=== PATIENT | female | born 1995 | race American Indian/Alaskan Native ===

== ENCOUNTER 2016-06-27 05:16 | Emergency (ER) | payer OTHER, SELFPAY ==
[2016-06-27 05:23] VITALS: RESP 18; TEMP 98.1; O2SAT 100
[2016-06-27] MEDS ORDERED: Alum-Mag Hydrox-Simethicone Susp (30 mL) PO STA (05:29)
--- NOTE | 2016-06-27 05:37 | ED PDOC ---
Arrival/HPI - General Chief Complaint: Abdominal Pain Time Seen by Provider: 06/27/16 05:18 Historian: Patient - History of Present Illness Narrative History of Present Illness (Text): 06/27/16 05:31 Mona Lozada is a 21 year old female, with no significant past medical history, presents to the emergency department complaining of intermittent epigastric abdominal pain for past 2 days. Describes quality as a sharp pain which does not radiate elsewhere. Currently has no pain. Denies any nausea, vomiting, diarrhea, or urinary symptoms. Patient's is unsure when her last bowel movement was, but states it was normal. Denies any other complaints. PMD: No PMD Time/Duration: < week (2 days ) Symptom Onset: Gradual Symptom Course: Intermittent Severity Level: Mild Activities at Onset: Light Context: Home Past Medical History - Provider Review Nursing Documentation Reviewed: Yes - Past History Past History: No Previous - Infectious Disease Hx of Infectious Diseases: None - Tetanus Immunization Tetanus Immunization: Unknown - Past Medical History Past Medical History: No Previous - Cardiac Hx Cardiac Disorders: No - Pulmonary Hx Respiratory Disorders: No - Neurological Hx Neurological Disorder: No - HEENT Hx HEENT Disorder: No - Renal Hx Renal Disorder: No - Endocrine/Metabolic Hx Endocrine Disorders: No - Hematological/Oncological Hx Blood Disorders: No - Integumentary Hx Dermatological Disorder: Yes Other/Comment: Lump on R breast - Musculoskeletal/Rheumatological Hx Musculoskeletal Disorders: No - Gastrointestinal Hx Gastrointestinal Disorders: No - Genitourinary/Gynecological Hx Genitourinary Disorders: No - Psychiatric Hx Psychophysiologic Disorder: No Hx Anxiety: No Hx Bipolar Disorder: No Hx Depression: No Hx Emotional Abuse: No Hx Hallucinations: No Hx Panic Disorder: No Hx Post Traumatic Stress Disorder: No Hx Psychosis: No Hx Physical Abuse: No Hx Schizophrenia: No Hx Sexual Abuse: No Hx Substance Use: No - Past Surgical History Past Surgical History: No Previous - Anesthesia Hx Anesthesia: No Hx Anesthesia Reactions: No Hx Malignant Hyperthermia: No - Suicidal Assessment Feels Threatened In Home Enviroment: No Family/Social History - Physician Review Nursing Documentation Reviewed: Yes Family/Social History: No Known Family HX Smoking Status: Never Smoked Hx Alcohol Use: No Hx Substance Use: No Hx Substance Use Treatment: No Allergies/Home Meds Allergies/Adverse Reactions: Allergies No Known Allergies Allergy (Verified 06/07/16 10:52) Review of Systems - Physician Review All systems were reviewed & negative as marked: Yes - Review of Systems Constitutional: Normal. absent: Fatigue, Fevers Respiratory: Normal. absent: SOB, Cough Gastrointestinal: Abdominal Pain. absent: Diarrhea, Nausea, Vomiting Neurological: Normal. absent: Headache, Dizziness Psychiatric: Normal Physical Exam Vital Signs Reviewed: Yes Vital Signs Temp Pulse Resp BP Pulse Ox 06/27/16 06:25 71 18 112/69 100 06/27/16 05:22 98.1 F 89 18 113/68 100 Temperature: Afebrile Blood Pressure: Normal Pulse: Regular Respiratory Rate: Normal Appearance: Positive for: Well-Appearing, Non-Toxic, Comfortable Pain Distress: None Mental Status: Positive for: Alert and Oriented X 3 - Systems Exam Head: Present: Atraumatic, Normocephalic Pupils: Present: PERRL Extroacular Muscles: Present: EOMI Conjunctiva: Present: Normal Respiratory/Chest: Present: Clear to Auscultation, Good Air Exchange. No: Respiratory Distress, Accessory Muscle Use Cardiovascular: Present: Regular Rate and Rhythm, Normal S1, S2. No: Murmurs Abdomen: Present: Normal Bowel Sounds. No: Tenderness, Distention, Peritoneal Signs, Rebound, Guarding Upper Extremity: Present: Normal Inspection Lower Extremity: Present: Normal Inspection Neurological: Present: GCS=15, CN II-XII Intact, Speech Normal Skin: Present: Warm, Dry, Normal Color. No: Rashes Psychiatric: Present: Alert, Oriented x 3, Normal Insight, Normal Concentration Medical Decision Making ED Course and Treatment: 06/27/16 05:38 Impression: A 21 year old female who presents to the ed c/o intermittent abdominal pain for 2 days. Plan: -- Maalox -- Pepcid Progress Notes: 06/27/16 05:39 - Medication Orders Current Medication Orders: Discontinued Medications Al Hydrox/Mg Hydrox/Simethicone (Maalox Plus 30 Ml) 30 ml PO STAT STA Stop: 06/27/16 05:30 Last Admin: 06/27/16 05:46 Dose: 30 ML Famotidine (Pepcid) 20 mg PO STAT STA Stop: 06/27/16 05:29 Last Admin: 06/27/16 05:46 Dose: 20 MG - Scribe Statement The provider has reviewed the documentation as recorded by the Andreea Burns Provider Attestation: All medical record entries made by the Andreea were at my direction and personally dictated by me. I have reviewed the chart and agree that the record accurately reflects my personal performance of the history, physical exam, medical decision making, and the department course for this patient. I have also personally directed, reviewed, and agree with the discharge instructions and disposition. Disposition/Present on Arrival - Present on Arrival Any Indicators Present on Arrival: No History of DVT/PE: No History of Uncontrolled Diabetes: No Urinary Catheter: No History of Decub. Ulcer: No History Surgical Site Infection Following: None - Disposition Have Diagnosis and Disposition been Completed?: Yes Diagnosis: Abdominal pain Disposition: HOME/ ROUTINE Disposition Time: 06:30 Patient Plan: Discharge Patient Problems: Current Active Problems Problem Status Diagnosed Abdominal pain Acute Condition: IMPROVED Discharge Instructions (ExitCare): Abdominal Pain (ED) Additional Instructions: Ms Mullen, thank you for letting us take care of you today. Your provider was Dr. More. You were treated for Abdominal Pain. The emergency medical care you received today was directed at your acute symptoms. If you were prescribed any medication, please fill it and take as directed. It may take several days for your symptoms to resolve. Return to the Emergency Department if your symptoms worsen, do not improve, or if you have any other problems. Please contact your doctor or call one of the physicians/clinics you have been referred to that are listed on the Patient Visit Information form that is included in your discharge packet. Bring any paperwork you were given at discharge with you along with any medications you are taking to your follow up visit. Our treatment cannot replace ongoing medical care by a primary care provider (PCP) outside of the emergency department. Thank you for allowing the [facility] team to be part of your care today. If you had an X-Ray or CT scan: A Radiologist will review the ED reading if any change in treatment is needed we will contact you. If you had a blood, urine, or wound culture: It will take several days for the results, if any change in treatment is needed we will contact you. If you had an STI test: It will take 48 hours for the results. Please call after 1 week if you have not heard back. Prescriptions: Aluminum Hydroxide/Magnesium H [Maalox 30 ml] 30 ml PO Q8 #1 bottle Ranitidine HCl [Zantac] 150 mg PO BID PRN #30 tablet PRN Reason: Pain, Mild (1-3) Referrals: [facility] at [facility] [Outside] - Follow up with primary Forms: WORK NOTE
[2016-06-27 06:26] VITALS: BP 112/69; PULSE 71
== END 2016-06-27 06:33 | disposition home or self-care (01) ==
LOC: ED 05:16
DX: R10.13 Epigastric pain (principal)

== ENCOUNTER 2016-08-09 21:18 | Emergency (ER) | payer SELFPAY ==
[2016-08-09 21:25] VITALS: RESP 16; TEMP 98.8; O2SAT 100
[2016-08-09] MEDS ORDERED: DiphenhydrAMINE 12.5 mg/5 ml LIQ UD (5 ml) PO STA (22:09)
--- NOTE | 2016-08-09 22:14 | ED PDOC ---
Arrival/HPI - General Chief Complaint: Female Genitourinary Time Seen by Provider: 08/09/16 21:53 Historian: Patient - History of Present Illness Narrative History of Present Illness (Text): 08/09/16 22:09 21yo female present in ER with complaint of vaginal swelling and pain minutes s/ p using new soap tonight. States the swelling have improved significantly since she came to the ED. She denies urinary symptoms, vaginal discharge, abdominal pain, SOB, chest pain, rash, any other complaint. Past Medical History - Provider Review Nursing Documentation Reviewed: Yes - Past History Past History: No Previous - Infectious Disease Hx of Infectious Diseases: None - Tetanus Immunization Tetanus Immunization: Unknown - Reproductive Menopause: No - Past Medical History Past Medical History: No Previous - Cardiac Hx Cardiac Disorders: No - Pulmonary Hx Respiratory Disorders: No - Neurological Hx Neurological Disorder: No - HEENT Hx HEENT Disorder: No - Renal Hx Renal Disorder: No - Endocrine/Metabolic Hx Endocrine Disorders: No - Hematological/Oncological Hx Blood Disorders: No - Integumentary Hx Dermatological Disorder: Yes Other/Comment: Lump on R breast - Musculoskeletal/Rheumatological Hx Musculoskeletal Disorders: No - Gastrointestinal Hx Gastrointestinal Disorders: No - Genitourinary/Gynecological Hx Genitourinary Disorders: No - Psychiatric Hx Psychophysiologic Disorder: No Hx Anxiety: No Hx Bipolar Disorder: No Hx Depression: No Hx Emotional Abuse: No Hx Hallucinations: No Hx Panic Disorder: No Hx Post Traumatic Stress Disorder: No Hx Psychosis: No Hx Physical Abuse: No Hx Schizophrenia: No Hx Sexual Abuse: No Hx Substance Use: No - Past Surgical History Past Surgical History: No Previous - Anesthesia Hx Anesthesia: No Hx Anesthesia Reactions: No Hx Malignant Hyperthermia: No - Suicidal Assessment Feels Threatened In Home Enviroment: No Family/Social History - Physician Review Nursing Documentation Reviewed: Yes Family/Social History: Unknown Family HX Smoking Status: Never Smoked Hx Alcohol Use: No Hx Substance Use: No Hx Substance Use Treatment: No Allergies/Home Meds Allergies/Adverse Reactions: Allergies No Known Allergies Allergy (Verified 06/07/16 10:52) Review of Systems - Physician Review All systems were reviewed & negative as marked: Yes - Review of Systems Constitutional: Normal Eyes: Normal ENT: Normal Respiratory: Normal Cardiovascular: Normal Gastrointestinal: Normal Genitourinary Female: Other (Vaginal pain) Musculoskeletal: Normal Skin: Normal Neurological: Normal Endocrine: Normal Hemo/Lymphatic: Normal Psychiatric: Normal Physical Exam Vital Signs Reviewed: Yes Vital Signs Temp Pulse Resp BP Pulse Ox 08/09/16 21:24 98.8 F 84 16 133/83 100 Temperature: Afebrile Blood Pressure: Normal Pulse: Regular Respiratory Rate: Normal Appearance: Positive for: Well-Appearing, Non-Toxic, Comfortable Pain Distress: None Mental Status: Positive for: Alert and Oriented X 3 - Systems Exam Head: Present: Atraumatic, Normocephalic Pupils: Present: PERRL Extroacular Muscles: Present: EOMI Conjunctiva: Present: Normal Mouth: Present: Moist Mucous Membranes Pharnyx: No: Strider Neck: Present: Normal Range of Motion Respiratory/Chest: Present: Clear to Auscultation, Good Air Exchange. No: Respiratory Distress, Accessory Muscle Use Cardiovascular: Present: Regular Rate and Rhythm, Normal S1, S2. No: Murmurs Abdomen: Present: Normal Bowel Sounds. No: Tenderness, Distention, Peritoneal Signs Genitourinary/Pelvic Exam: Present: Normal External Genitalia Back: Present: Normal Inspection Upper Extremity: Present: Normal Inspection. No: Cyanosis, Edema Lower Extremity: Present: Normal Inspection. No: Edema Neurological: Present: GCS=15, CN II-XII Intact, Speech Normal Skin: Present: Warm, Dry, Normal Color. No: Rashes Psychiatric: Present: Alert, Oriented x 3, Normal Insight, Normal Concentration Medical Decision Making - Medication Orders Current Medication Orders: Diphenhydramine HCl (Benadryl) 25 mg PO STAT STA Stop: 08/09/16 22:10 Prednisone (Prednisone Tab) 40 mg PO STAT STA Stop: 08/09/16 22:10 Disposition/Present on Arrival - Present on Arrival Any Indicators Present on Arrival: No History of DVT/PE: No History of Uncontrolled Diabetes: No Urinary Catheter: No History of Decub. Ulcer: No History Surgical Site Infection Following: None - Disposition Have Diagnosis and Disposition been Completed?: Yes Diagnosis: Allergic reaction Disposition: HOME/ ROUTINE Disposition Time: 22:15 Patient Plan: Discharge Condition: STABLE Discharge Instructions (ExitCare): Urticaria (ED) Additional Instructions: Follow up with your doctor Return to ED for any new or worsening symptoms Prescriptions: DiphenhydrAMINE [Benadryl] 25 mg PO Q4H #20 cap predniSONE [Prednisone] 20 mg PO DAILY #3 tab Referrals: PCP,NO [Primary Care Provider] - Follow up with primary
[2016-08-09 23:15] VITALS: BP 123/69; PULSE 76
== END 2016-08-09 23:15 | disposition home or self-care (01) ==
LOC: ED 21:18
DX: T78.40XA Allergy, unspecified, initial encounter (principal); X58.XXXA Exposure to other specified factors, initial encounter

== ENCOUNTER 2018-03-10 09:05 | Emergency (ER) | payer MEDICAID, OTHER, SELFPAY ==
[2018-03-10 09:13] VITALS: BMI 22.9
[2018-03-10 09:15] VITALS: TEMP 97.7; O2SAT 98
--- NOTE | 2018-03-10 10:21 | ED PDOC ---
Arrival/HPI - General Chief Complaint: Female Genitourinary Time Seen by Provider: 03/10/18 09:38 Historian: Patient - History of Present Illness Narrative History of Present Illness (Text): 03/10/18 10:17 23yr old female presents today with vaginal bleeding x 2 days. pt c/o lower abdominal cramping. no fever/chills. pt states LMP was 02/20/18. pt states periods are always regular. pt denies . pt denies cp or sob. no n/v/d/c. no urinary symptoms. pt c/o slight right sided back pain. pt states she usually gets back pain with her periods. pt states she started using metrogel for BV on 2 days ago. Past Medical History - Provider Review Nursing Documentation Reviewed: Yes - Travel History Have you recently traveled outside [place] w/in the past 3 mons?: No - Past History Past History: No Previous - Infectious Disease Hx of Infectious Diseases: None - Tetanus Immunization Tetanus Immunization: Unknown - Past Medical History Past Medical History: No Previous - Cardiac Hx Cardiac Disorders: No - Pulmonary Hx Respiratory Disorders: No - Neurological Hx Neurological Disorder: No - HEENT Hx HEENT Disorder: No - Renal Hx Renal Disorder: No - Endocrine/Metabolic Hx Endocrine Disorders: No - Hematological/Oncological Hx Blood Disorders: No - Integumentary Hx Dermatological Disorder: Yes Other/Comment: Lump on R breast - Musculoskeletal/Rheumatological Hx Musculoskeletal Disorders: No Hx Falls: No - Gastrointestinal Hx Gastrointestinal Disorders: No - Genitourinary/Gynecological Hx Genitourinary Disorders: No - Psychiatric Hx Anxiety: No Hx Bipolar Disorder: No Hx Depression: No Hx Post Traumatic Stress Disorder: No Hx Schizophrenia: No Hx Substance Use: No - Past Surgical History Past Surgical History: No Previous - Anesthesia Hx Anesthesia: No Hx Anesthesia Reactions: No Hx Malignant Hyperthermia: No - Suicidal Assessment Feels Threatened In Home Enviroment: No Family/Social History - Physician Review Nursing Documentation Reviewed: Yes Family/Social History: Unknown Family HX Smoking Status: Never Smoked Hx Alcohol Use: No Hx Substance Use: No Hx Substance Use Treatment: No Allergies/Home Meds Allergies/Adverse Reactions: Allergies No Known Allergies Allergy (Verified 10/03/17 10:47) Home Medications: Home Meds Medication Instructions Recorded Confirmed No Known Home Med 01/07/18 03/10/18 Review of Systems - Review of Systems Constitutional: absent: Fatigue, Fevers Respiratory: absent: SOB, Cough Cardiovascular: absent: Chest Pain, Palpitations Gastrointestinal: Abdominal Pain. absent: Constipation, Diarrhea, Nausea, Vomiting Genitourinary Female: Vaginal Bleeding. absent: Dysuria, Frequency Musculoskeletal: Back Pain. absent: Arthralgias, Neck Pain Skin: absent: Rash, Pruritis Neurological: absent: Headache, Dizziness Psychiatric: absent: Anxiety, Depression Physical Exam Vital Signs Reviewed: Yes Vital Signs Temp Pulse Resp BP Pulse Ox 03/10/18 09:14 97.7 F 83 16 118/81 98 Temperature: Afebrile Blood Pressure: Normal Pulse: Regular Respiratory Rate: Normal Appearance: Positive for: Well-Appearing, Non-Toxic, Comfortable Pain Distress: None Mental Status: Positive for: Alert and Oriented X 3 - Systems Exam Head: Present: Atraumatic Mouth: Present: Moist Mucous Membranes Neck: Present: Normal Range of Motion Respiratory/Chest: Present: Clear to Auscultation, Good Air Exchange. No: Respiratory Distress, Accessory Muscle Use Cardiovascular: Present: Regular Rate and Rhythm, Normal S1, S2. No: Murmurs Abdomen: Present: Tenderness (minimal suprapubic tenderness). No: Distention, Peritoneal Signs, Rebound, Guarding Genitourinary/Pelvic Exam: Present: Normal External Genitalia, Vaginal Bleeding (minimal bleeding noted), Cervical os Closed, Other (chaparoned by Estefany JAMES student). No: Vaginal Lesions, Adenexal Tenderness, Adenexal Mass, Cervical Motion Tendernes, Odor Back: Present: Normal Inspection. No: CVA Tenderness, Midline Tenderness, Paraspinal Tenderness Upper Extremity: Present: Normal Inspection Lower Extremity: Present: Normal Inspection Neurological: Present: GCS=15, Speech Normal Skin: Present: Warm, Dry, Normal Color. No: Rashes Psychiatric: Present: Alert, Oriented x 3 Medical Decision Making ED Course and Treatment: 03/10/18 10:22 Patient is nontoxic well appearing in no distress. Vital signs are stable. CBC: wnl CMP: wnl Beta hCG: wnl Urinalysis: + blood Ultrasound (transvaginal): normal examination as read by radiologist Discussed all the results the patient. advised f/u with the emergency services professional within the next 2 days. advised immediate return if symptoms worsen,persist or if new symptoms develop. Impression: Vaginal bleeding Tylenol every 4 hours as needed for pain Increase fluids Followup with the emergency services professional within the next 2 days Return immediately if symptoms worsen persist or if new symptoms develop: High fevers, heavy bleeding, severe abdominal pain, vomiting, diarrhea, dizziness or weakness or any other concerning symptoms develop. Disposition/Present on Arrival - Present on Arrival Any Indicators Present on Arrival: No History of DVT/PE: No History of Uncontrolled Diabetes: No Urinary Catheter: No History of Decub. Ulcer: No History Surgical Site Infection Following: None - Disposition Have Diagnosis and Disposition been Completed?: Yes Diagnosis: Vaginal bleeding Disposition: HOME/ ROUTINE Disposition Time: 11:15 Patient Plan: Discharge Condition: GOOD Additional Instructions: Tylenol every 4 hours as needed for pain Increase fluids Followup with the emergency services professional within the next 2 days Return immediately if symptoms worsen persist or if new symptoms develop: High fevers, heavy bleeding, severe abdominal pain, vomiting, diarrhea, dizziness or weakness or any other concerning symptoms develop. Referrals: Mel Cody MD [Medical Doctor] - Follow up with primary Kay Curiel MD [Medical Doctor] - Follow up with primary [facility] [Outside] - Follow up with primary [facility] [Outside] - Follow up with primary Forms: [facility] (Korean), WORK NOTE
[2018-03-10 10:51] LABS: BASO # 0.03 K/mm3 (0.0-2.0); BASO % 0.7 % (0.0-3.0); EOS % 0.9 % (1.5-5.0); GRAN # 2.63 (1.4-6.5); HEMOGLOBIN 12.6 g/dL (12.0-16.0); LYMPH # 1.7 (1.2-3.4); LYMPH % 35.8 % (22.0-35.0); MEAN CELL VOLUME 78.3 fl (80.0-105.0); MEAN CORPUSCULAR HEMOGLOBIN 25.5 pg (25.0-35.0); MEAN CORPUSCULAR HGB CONC 32.6 g/dl (31.0-37.0); MEAN PLATELET VOLUME 9.4 fl (7.0-11.0); MONO # 0.3 (0.1-0.6); MONO % 5.6 % (1.0-6.0); RBC 4.94 10^6/uL (3.5-6.1); RED CELL DISTRIBUTION WIDTH 14.3 % (11.5-14.5); WHITE BLOOD COUNT 4.6 10^3/uL (4.5-11.0)
[2018-03-10 11:00] LABS: ALB/GLOB RATIO 1.4 (1.1-1.8); ALBUMIN 4.6 g/dL (3.0-4.8); ALT/SGPT 41 U/L (7-56); AST/SGOT 26 U/L (14-36); BLOOD UREA NITROGEN 11 mg/dL (7-21); GFR NON-AFRICAN AMERICAN > 60
[2018-03-10 11:05] LABS: PH,URINE 5.5 (4.7-8.0); URINE APPEARANCE CLOUDY (CLEAR); URINE BILIRUBIN SMALL (NEGATIVE); URINE BLOOD LARGE (NEGATIVE); URINE COLOR RED (YELLOW); URINE GLUCOSE (UA) 100 mg/dL (NEGATIVE); URINE LEUKOCYTE ESTERASE TRACE Leu/uL (NEGATIVE); URINE PROTEIN >=300 mg/dL (<30 mg/dL); URINE RBC TNTC /hpf (0-2)
[2018-03-10 11:06] LABS: URINE BACTERIA FEW (NEG)
[2018-03-10 11:09] VITALS: BP 116/78; PULSE 79; RESP 18
--- NOTE | 2018-03-10 11:18 | US ---
Date of service: 03/10/2018 PROCEDURE: HISTORY: vaginal bleeding COMPARISON: TECHNIQUE: FINDINGS: The uterus measures 7.5 x 3.5 x 4.6 centimeters. The endometrium measures 4 millimeters. There is no free fluid the pelvis. The ovaries have a normal sonographic appearance. IMPRESSION: Normal exam.
== END 2018-03-10 11:40 | disposition home or self-care (01) ==
LOC: ED 09:05
DX: N93.9 Abnormal uterine and vaginal bleeding, unspecified (principal)

== ENCOUNTER 2018-05-23 18:31 | Emergency (ER) | payer MEDICAID, OTHER ==
[2018-05-23 18:31] VITALS: BMI 22.9
--- NOTE | 2018-05-23 18:55 | ED PDOC ---
Arrival/HPI - General Chief Complaint: Chest Pain Time Seen by Provider: 05/23/18 18:38 - History of Present Illness Narrative History of Present Illness (Text): 23 yr old female w/ hx of mastitis p/w L sided chest pain. Pt denies or scratching her L chest. She denies any redness to L chest. She notes 1 week of L sided chest pain, worse when she lays on her lateral L side reproducible to palpation. She denies any lumps, warmth or tenderness in her breast or any nipple discharge. No fever, chills or night sweats. She notes this pain started after she slept wrong on her L side. She denies any shortness of breath or pleuritic chest pain. No recent weight loss. No orthopnea or PND. No leg swelling. No hx of dvt. no trauma or fall. No GI or complaints. She denies any rashes. She denies taking any medications for the pain. No other complaints. Past Medical History - Past History Past History: No Previous - Infectious Disease Hx of Infectious Diseases: None - Tetanus Immunization Tetanus Immunization: Unknown - Reproductive Currently : Unknown - Past Medical History Past Medical History: No Previous - Cardiac Hx Cardiac Disorders: No - Pulmonary Hx Respiratory Disorders: No - Neurological Hx Neurological Disorder: No - HEENT Hx HEENT Disorder: No - Renal Hx Renal Disorder: No - Endocrine/Metabolic Hx Endocrine Disorders: No - Hematological/Oncological Hx Blood Disorders: No - Integumentary Hx Dermatological Disorder: Yes Other/Comment: Lump on R breast - Musculoskeletal/Rheumatological Hx Musculoskeletal Disorders: No Hx Falls: No - Gastrointestinal Hx Gastrointestinal Disorders: No - Genitourinary/Gynecological Hx Genitourinary Disorders: No - Psychiatric Hx Post Traumatic Stress Disorder: No Hx Schizophrenia: No Hx Substance Use: No - Past Surgical History Past Surgical History: No Previous - Anesthesia Hx Anesthesia: No Hx Anesthesia Reactions: No Hx Malignant Hyperthermia: No - Suicidal Assessment Feels Threatened In Home Enviroment: No Family/Social History Family/Social History: Unknown Family HX Smoking Status: Never Smoked Hx Alcohol Use: No Hx Substance Use: No Hx Substance Use Treatment: No Allergies/Home Meds Allergies/Adverse Reactions: Allergies No Known Allergies Allergy (Verified 10/03/17 10:47) Review of Systems - Review of Systems Constitutional: Normal Eyes: absent: Vision Changes ENT: absent: Hearing Changes Respiratory: absent: SOB, Cough Cardiovascular: Chest Pain. absent: Palpitations, Edema, Calf Pain, CROWELL, Orthopnea, Syncope Gastrointestinal: absent: Abdominal Pain, Stool Changes Genitourinary Female: absent: Dysuria, Frequency, Hematuria Musculoskeletal: absent: Arthralgias, Back Pain Skin: absent: Rash, Pruritis, Skin Lesions Neurological: absent: Headache, Dizziness Endocrine: absent: Diaphoresis, Polyuria Hemo/Lymphatic: absent: Adenopathy, Easy Bleeding Physical Exam Temperature: Afebrile Blood Pressure: Normal Pulse: Regular Respiratory Rate: Normal Appearance: Positive for: Well-Appearing Pain Distress: None Mental Status: Positive for: Alert and Oriented X 3 - Systems Exam Head: Present: Atraumatic, Normocephalic Pupils: Present: PERRL Extroacular Muscles: Present: EOMI Conjunctiva: Present: Normal Mouth: Present: Moist Mucous Membranes Neck: Present: Normal Range of Motion. No: Meningeal Signs, MIDLINE TENDERNESS Respiratory/Chest: Present: Clear to Auscultation, Good Air Exchange, Tender to Palpation (L lateral chest wall/ L breast border). No: Respiratory Distress Cardiovascular: Present: Regular Rate and Rhythm, Normal S1, S2. No: Murmurs Abdomen: Present: Normal Bowel Sounds. No: Tenderness, Distention Breast/Axillary: Present: Symmetrical, Tender to Palpation (L lateral chest wall/ L breast border). No: Discoloration, Erythema, Fluctuance, Masses, Nipple Discharge, Swelling Back: Present: Normal Inspection. No: CVA Tenderness, Midline Tenderness Upper Extremity: Present: Normal Inspection, Normal ROM. No: Cyanosis, Edema Lower Extremity: Present: Normal Inspection, Normal ROM. No: Edema, CALF TENDE RNESS Neurological: Present: GCS=15, CN II-XII Intact, Speech Normal Skin: Present: Warm, Dry. No: Rashes Lymphatic: No: Cervical Adenopathy, Axillary Adenopathy Psychiatric: Present: Alert, Oriented x 3, Normal Insight Medical Decision Making ED Course and Treatment: 23 yr old F w/ hx of mastitis p/w L sided chest pain. No signs of mastitis on exam. Normal Breast exam on L. L Lateral chest wall pain mainly. No mass, cysts or discharge noted. No erythema or crepitus. Likely chest wall pain. No fever, chills or night sweats. No lymphadenopathy noted. CP not consistent w/ cardiac etiology. No RF for ACS. Low pretest wells. PERC out. Pending labs and imaging 05/23/18 19:37 +preg Patient endorses she wasnt sure she was and wanted to get checked here Pt notes she will sign waiver for XR, she acknowledges radiation risk to fetus. she denies any abdominal pain, pelvic pain, vaginal d/c or vaginal bleeding. LMP was 1225. Pending imaging, labs 05/23/181999 signed out to Dr. Toledo pending Urinalysis, Labs, Xray and reassessment pt in NAD - RAD Interpretation Radiology Orders: 05/23/18 18:44 CHEST TWO VIEWS (PA/LAT) [RAD] Stat - Medication Orders Current Medication Orders: Discontinued Medications Acetaminophen (Tylenol 325mg Tab) 650 mg PO STAT STA Stop: 05/23/18 18:51 Disposition/Present on Arrival - Present on Arrival Any Indicators Present on Arrival: No History of DVT/PE: No History of Uncontrolled Diabetes: No Urinary Catheter: No History Surgical Site Infection Following: None - Disposition Have Diagnosis and Disposition been Completed?: Yes Diagnosis: Chest pain, Disposition Time: 20:00 Patient Problems: Current Active Problems Problem Status Onset Chest pain Acute Acute Condition: STABLE Discharge Instructions (ExitCare): Chest Pain (ED) Referrals: PCP,NO [Primary Care Provider] - Follow up with primary Forms: [employer] (Chilean)
[2018-05-23 19:25] VITALS: RESP 18; TEMP 97.8
[2018-05-23 19:56] LABS: BASO # 0.04 K/mm3 (0.0-2.0); BASO % 0.7 % (0.0-3.0); EOS # 0.1 (0.0-0.7); EOS % 1.5 % (1.5-5.0); HEMOGLOBIN 12.1 g/dL (12.0-16.0); MEAN CELL VOLUME 77.2 fl (80.0-105.0); MEAN CORPUSCULAR HEMOGLOBIN 24.6 pg (25.0-35.0); MEAN CORPUSCULAR HGB CONC 31.9 g/dl (31.0-37.0); MEAN PLATELET VOLUME 9.2 fl (7.0-11.0); MONO # 0.4 (0.1-0.6); MONO % 7.5 % (1.0-6.0); RBC 4.91 10^6/uL (3.5-6.1); RED CELL DISTRIBUTION WIDTH 14.9 % (11.5-14.5); WHITE BLOOD COUNT 5.5 10^3/uL (4.5-11.0)
--- NOTE | 2018-05-23 20:00 | ED PDOC ---
Physical Exam Vital Signs Temp Pulse Resp BP Pulse Ox 05/23/18 18:31 97.8 F 73 18 111/73 97 Medical Decision Making ED Course and Treatment: 05/23/18 20:00 Case endorsed to me by Dr. Liban Reagan. Currently pending labs, Urinalysis, X-Ray, and reassessment. 05/23/18 20:40 Preliminary results of Chest X-ray shows no acute disease. - RAD Interpretation Radiology Orders: 05/23/18 18:44 CHEST TWO VIEWS (PA/LAT) [RAD] Stat - Medication Orders Current Medication Orders: Discontinued Medications Acetaminophen (Tylenol 325mg Tab) 650 mg PO STAT STA Stop: 05/23/18 18:51 Last Admin: 05/23/18 19:18 Dose: 650 mg - Scribe Statement The provider has reviewed the documentation as recorded by the Andreea Ace Provider Scribe Attestation: All medical record entries made by the Scribe were at my direction and personally dictated by me. I have reviewed the chart and agree that the record accurately reflects my personal performance of the history, physical exam, medical decision making, and the department course for this patient. I have also personally directed, reviewed, and agree with the discharge instructions and disposition. Disposition/Present on Arrival - Present on Arrival Any Indicators Present on Arrival: No History of DVT/PE: No History of Uncontrolled Diabetes: No Urinary Catheter: No History of Decub. Ulcer: No History Surgical Site Infection Following: None - Disposition Have Diagnosis and Disposition been Completed?: Yes Diagnosis: Chest pain, , Musculoskeletal chest pain Disposition: HOME/ ROUTINE Disposition Time: 20:51 Patient Plan: Discharge Patient Problems: Current Active Problems Problem Status Onset Chest pain Acute Musculoskeletal chest pain Acute Acute Condition: GOOD Discharge Instructions (ExitCare): Chest Pain (ED) Additional Instructions: May take Tylenol only as directed/follow up with your doctor this week Referrals: Sharifa Rodríguez MD [Staff Provider] - Follow up with primary Forms: [facility] (Macedonian), WORK NOTE, SCHOOL NOTE
[2018-05-23 20:23] LABS: ALB/GLOB RATIO 1.4 (1.1-1.8); ALBUMIN 4.5 g/dL (3.0-4.8); ALT/SGPT 19 U/L (7-56); AST/SGOT 36 U/L (14-36); BLOOD UREA NITROGEN 11 mg/dL (7-21); CALCIUM 9.2 mg/dL (8.4-10.5); GFR NON-AFRICAN AMERICAN > 60
[2018-05-23 20:56] VITALS: BP 108/78; PULSE 70; O2SAT 98
--- NOTE | 2018-05-24 09:15 | CARD ---
APPROVED REPORT Date of service: 05/23/2018 EKG Measurement Heart [id number] <Conclusion> Normal sinus rhythm Normal ECG
--- NOTE | 2018-05-24 10:35 | RAD ---
Date of service: 05/23/2018 HISTORY: Chest pain. COMPARISON: 04/18/2016 TECHNIQUE: Chest PA and lateral FINDINGS: LUNGS: No active pulmonary disease. PLEURA: No significant pleural effusion identified. No pneumothorax apparent. CARDIOVASCULAR: No aortic atherosclerotic calcification present. Normal cardiac size. No pulmonary vascular congestion. OSSEOUS STRUCTURES: No significant abnormalities. VISUALIZED UPPER ABDOMEN: Normal. OTHER FINDINGS: None. IMPRESSION: No active disease. No significant interval change compared to the prior examination(s). Please note per institutional protocol the patient sign the consent form for diagnostic radiology procedure during or possible .
== END 2018-05-23 21:18 | disposition home or self-care (01) ==
LOC: ED 18:31
DX: O26.899 Other specified pregnancy related conditions, unspecified trimester (principal); R07.89 Other chest pain

== ENCOUNTER 2018-07-05 17:08 | Emergency (ER) | payer MEDICAID, OTHER ==
[2018-07-05 17:46] VITALS: RESP 18; O2SAT 99; BMI 22.4
--- NOTE | 2018-07-05 17:46 | ED PDOC ---
Arrival/HPI - General Chief Complaint: Female Genitourinary Time Seen by Provider: 07/05/18 17:31 Historian: Patient - History of Present Illness Narrative History of Present Illness (Text): 07/05/18 17:49 23 year old female, gestation 13 weeks, A1, with no significant past medical history, who presents to the Emergency department for sharp lower abdominal pain since this morning. Patient reports that the pain worsens when bending down but denies any other associated complaints. Patient reports recent US, which showed appropriate placement. Patient denies any constipation, diarrhea, vaginal discharge or bleeding, fever, dysuria or any other complaints. Patient denies any past abdominal surgeries. Time/Duration: 4-6 hours Symptom Onset: Gradual Symptom Course: Unchanged Activities at Onset: Light Context: Home Past Medical History - Provider Review Nursing Documentation Reviewed: Yes - Past History Past History: No Previous - Infectious Disease Hx of Infectious Diseases: None - Tetanus Immunization Tetanus Immunization: Unknown - Past Medical History Past Medical History: No Previous - Cardiac Hx Cardiac Disorders: No - Pulmonary Hx Respiratory Disorders: No - Neurological Hx Neurological Disorder: No - HEENT Hx HEENT Disorder: No - Renal Hx Renal Disorder: No - Endocrine/Metabolic Hx Endocrine Disorders: No - Hematological/Oncological Hx Blood Disorders: No - Integumentary Hx Dermatological Disorder: Yes Other/Comment: Lump on R breast - Musculoskeletal/Rheumatological Hx Musculoskeletal Disorders: No Hx Falls: No - Gastrointestinal Hx Gastrointestinal Disorders: No - Genitourinary/Gynecological Hx Genitourinary Disorders: No - Psychiatric Hx Anxiety: No Hx Bipolar Disorder: No Hx Depression: No Hx Post Traumatic Stress Disorder: No Hx Schizophrenia: No Hx Substance Use: No - Past Surgical History Past Surgical History: No Previous - Anesthesia Hx Anesthesia: No Hx Anesthesia Reactions: No Hx Malignant Hyperthermia: No - Suicidal Assessment Feels Threatened In Home Enviroment: No Family/Social History - Physician Review Nursing Documentation Reviewed: Yes Family/Social History: Unknown Family HX Smoking Status: Never Smoked Hx Alcohol Use: No Hx Substance Use: No Hx Substance Use Treatment: No Allergies/Home Meds Allergies/Adverse Reactions: Allergies No Known Allergies Allergy (Verified 10/03/17 10:47) Home Medications: Home Meds Medication Instructions Recorded Confirmed No Known Home Med 07/05/18 07/05/18 Review of Systems - Physician Review All systems were reviewed & negative as marked: Yes - Review of Systems Gastrointestinal: Abdominal Pain Genitourinary Female: absent: Hematuria, Vaginal Discharge Physical Exam - Physical Exam Narrative Physical Exam (Text): 07/05/18 17:47 Constitutional: No acute distress. Head: Normocephalic. Atraumatic. Eyes: PERRL. ENT: Moist mucous membranes. Neck: Supple. Cardiovascular: Regular rate. Chest: No tenderness. Respiratory: Clear to auscultation bilaterally. GI: Soft. Nondistended. No abdominal tenderness. Back: No CVA tenderness. Musculoskeletal: No tenderness or swelling of extremities. Skin: No rash. Neurologic: Alert, no focal deficit. Vital Signs Reviewed: Yes Vital Signs Temp Pulse Resp BP Pulse Ox 07/05/18 17:24 98 F 106 H 18 106/73 99 Temperature: Afebrile Blood Pressure: Normal Pulse: Tachycardic Respiratory Rate: Normal Appearance: Positive for: Well-Appearing, Non-Toxic, Comfortable Pain Distress: None Mental Status: Positive for: Alert and Oriented X 3 Medical Decision Making ED Course and Treatment: 07/05/18 17:49 Impression: 23 year old female who presents to the ED for lower abdominal pain. Plan: --Labs --Urine Culture --Urinalysis -- Transvaginal Ultrasound -- Reassess and disposition Prior Visits: Notes and results from previous visits were reviewed. Progress Notes: 07/05/18 19:44 US Obstetrical, Complete <14 weeks CLINICAL HISTORY: Abd pain TECHNIQUE: Transvaginal and transabdominal imaging of the maternal pelvis and a <14 week gestation with image documentation. COMPARISON: None provided. FINDINGS: GESTATION: There is a single live intrauterine gestation in a variable presentation at the time of the study. cardiac activity is identified. heart rate is 158 bpm. [place]-rump length is 6.85 cm corresponding to 13 weeks and 1 day. Head circumference is 7.78 cm corresponding to 13 weeks and 2 days. Abdominal circumference is 6.7 cm corresponding to 13 weeks and 2 days. Femur length is 1 cm corresponding 13 weeks 1 day. Estimated weight is 71.9 g. Head circumference to abdominal succumb to his ratio is 1.16. Visualized right and left ovaries appear within normal limits. UTERUS: Unremarkable. No myometrial mass. CERVIX: Closed. Unremarkable. FREE FLUID: No free fluid. IMPRESSION: Single live intrauterine gestation of approximately 13 weeks and 2 days. No adnexal mass or free fluid identified. Close clinical correlation and follow-up study for comparison and change is recommended. 07/05/18 20:59 - RAD Interpretation Radiology Orders: 07/05/18 17:42 TRANSVAGINAL [US] Stat - Scribe Statement The provider has reviewed the documentation as recorded by the Scribe Natalia eugene with Julia. All medical record entries made by the Scribe were at my direction and personally dictated by me. I have reviewed the chart and agree that the record accurately reflects my personal performance of the history, physical exam, medical decision making, and the department course for this patient. I have also personally directed, reviewed, and agree with the discharge instructions and disposition. Disposition/Present on Arrival - Present on Arrival Any Indicators Present on Arrival: No History of DVT/PE: No History of Uncontrolled Diabetes: No Urinary Catheter: No History of Decub. Ulcer: No History Surgical Site Infection Following: None - Disposition Have Diagnosis and Disposition been Completed?: Yes Diagnosis: Abdominal pain during Disposition: HOME/ ROUTINE Disposition Time: 19:45 Patient Plan: Discharge Patient Problems: Current Active Problems Problem Status Onset Abdominal pain during Acute Condition: GOOD Discharge Instructions (ExitCare): Stomach Pain in Early Referrals: PCP,NO [Primary Care Provider] - Follow up with primary Forms: [facility] (Moldovan), WORK NOTE
[2018-07-05 18:19] LABS: BASO # 0.03 K/mm3 (0.0-2.0); BASO % 0.5 % (0.0-3.0); EOS # 0.1 (0.0-0.7); EOS % 1.7 % (1.5-5.0); HEMOGLOBIN 12.3 g/dL (12.0-16.0); LYMPH # 1.8 (1.2-3.4); LYMPH % 30.8 % (22.0-35.0); MEAN CELL VOLUME 76.8 fl (80.0-105.0); MEAN CORPUSCULAR HGB CONC 32.5 g/dl (31.0-37.0); MEAN PLATELET VOLUME 9.2 fl (7.0-11.0); MONO # 0.4 (0.1-0.6); MONO % 6.8 % (1.0-6.0); RBC 4.92 10^6/uL (3.5-6.1); URINE BILIRUBIN NEGATIVE (NEGATIVE); URINE BLOOD NEGATIVE (NEGATIVE); URINE GLUCOSE (UA) NEGATIVE (NEGATIVE); URINE LEUKOCYTE ESTERASE NEGATIVE Leu/uL (NEGATIVE); URINE PROTEIN NEGATIVE mg/dL (<30 mg/dL); URINE UROBILINOGEN 0.2 E.U./dL (<1 E.U./dL); WHITE BLOOD COUNT 5.9 10^3/uL (4.5-11.0)
[2018-07-05 18:23] LABS: URINE APPEARANCE CLEAR (CLEAR); URINE COLOR YELLOW (YELLOW)
[2018-07-05 18:30] LABS: ALB/GLOB RATIO 1.2 (1.1-1.8); ALBUMIN 4.3 g/dL (3.0-4.8); ALT/SGPT 11 U/L (7-56); AST/SGOT 21 U/L (14-36); BLOOD UREA NITROGEN 10 mg/dL (7-21); CALCIUM 9.6 mg/dL (8.4-10.5); GFR NON-AFRICAN AMERICAN > 60
[2018-07-05 19:12] VITALS: BP 108/76; PULSE 96
[2018-07-05 23:15] VITALS: TEMP 98
--- NOTE | 2018-07-06 10:49 | US ---
Date of service: 07/05/2018 PROCEDURE: OB Pelvic Ultrasound HISTORY: Abdominal pain in COMPARISON: None available. FINDINGS: UTERUS: Single Live intrauterine fetus in variable presentation. BPD: 1.99 cm corresponding to 13 weeks and 1 day of gestational age. AC: 6.76 cm corresponding to 13 weeks and 3 days of gestational age.. HC: 7.71 cm corresponding to 13 weeks and 2 days of gestational age. FL: 1.03 cm corresponding to 13 weeks and 0 days of gestational age. 7 6 cm corresponding to 13 weeks and 3 days of gestational age. age (Ultrasound estimated): 13 weeks and 2 days Date of delivery (Ultrasound estimated) : 01/08/2019 Heart rate: 158 bpm. Leti-gestational hemorrhage: None. Placenta is anterior. CERVIX: Long and closed. No cervical abnormality seen. RIGHT OVARY: Measures 2.8 x 1.4 x 1.3 cm. No mass. Normal flow. LEFT OVARY: Measures 2.5 x 0.9 x 2.2 cm. No mass. Normal flow. FREE FLUID: None. OTHER FINDINGS: None. IMPRESSION: Single live intrauterine fetus in variable presentation with mean gestational age of thirteen weeks and 2 days. The estimated date of delivery by ultrasound is 01/08/2019. The ultrasound dates correspond with the clinical dates. Please note this is a limited OB ultrasound performed on an emergent basis. Dedicated anatomic survey is recommended. A preliminary report was provided by [email or web address].
== END 2018-07-05 21:03 | disposition home or self-care (01) ==
LOC: ED 17:08
DX: O26.891 Other specified pregnancy related conditions, first trimester (principal); R10.30 Lower abdominal pain, unspecified; Z3A.13 13 weeks gestation of pregnancy

== ENCOUNTER 2018-07-12 14:39 | Emergency (ER) | payer MEDICAID ==
[2018-07-12 14:46] VITALS: BMI 22.4
[2018-07-12 14:49] VITALS: TEMP 98.5
[2018-07-12 15:21] LABS: BASO # 0.03 K/mm3 (0.0-2.0); BASO % 0.5 % (0.0-3.0); EOS # 0.1 (0.0-0.7); HEMOGLOBIN 11.7 g/dL (12.0-16.0); LYMPH # 1.5 (1.2-3.4); LYMPH % 24.9 % (22.0-35.0); MEAN CELL VOLUME 77.3 fl (80.0-105.0); MEAN CORPUSCULAR HEMOGLOBIN 25.3 pg (25.0-35.0); MEAN CORPUSCULAR HGB CONC 32.7 g/dl (31.0-37.0); MEAN PLATELET VOLUME 9.2 fl (7.0-11.0); MONO # 0.3 (0.1-0.6); MONO % 5.7 % (1.0-6.0); RBC 4.63 10^6/uL (3.5-6.1); WHITE BLOOD COUNT 5.8 10^3/uL (4.5-11.0)
[2018-07-12 15:30] LABS: INR 1.18; PROTHROMBIN TIME 13.1 SECONDS (9.4-12.5)
--- NOTE | 2018-07-12 16:35 | ED PDOC ---
Arrival/HPI - General Chief Complaint: Female Genitourinary Time Seen by Provider: 07/12/18 14:47 Historian: Patient - History of Present Illness Narrative History of Present Illness (Text): 07/12/18 23 year old female A1 presents to the emergency department with vaginal bleeding noted this AM which resolved spontaneously. Since resolution of bleeding, she denies lower abdominal pain, pelvic pain, nausea, vomiting, diarrhea, or urinary symptoms. Patient denies care up-to-date, denies taking vitamins. Previous ED visits review, pt was seen on 06/14/18 and 07/05/18 due to same complaints, US results review, appears normal. At present time, pt appears comfortable, not in nay apparent distress. Past Medical History - Provider Review Nursing Documentation Reviewed: Yes - Travel History Have you recently traveled outside [place] w/in the past 3 mons?: No - Past History Past History: No Previous - Infectious Disease Hx of Infectious Diseases: None - Tetanus Immunization Tetanus Immunization: Unknown - Past Medical History Past Medical History: No Previous - Cardiac Hx Cardiac Disorders: No - Pulmonary Hx Respiratory Disorders: No - Neurological Hx Neurological Disorder: No - HEENT Hx HEENT Disorder: No - Renal Hx Renal Disorder: No - Endocrine/Metabolic Hx Endocrine Disorders: No - Hematological/Oncological Hx Blood Disorders: No - Integumentary Hx Dermatological Disorder: Yes Other/Comment: Lump on R breast - Musculoskeletal/Rheumatological Hx Musculoskeletal Disorders: No Hx Falls: No - Gastrointestinal Hx Gastrointestinal Disorders: No - Genitourinary/Gynecological Hx Genitourinary Disorders: No - Psychiatric Hx Anxiety: No Hx Bipolar Disorder: No Hx Depression: No Hx Post Traumatic Stress Disorder: No Hx Schizophrenia: No Hx Substance Use: No - Past Surgical History Past Surgical History: No Previous - Anesthesia Hx Anesthesia: No Hx Anesthesia Reactions: No Hx Malignant Hyperthermia: No - Suicidal Assessment Feels Threatened In Home Enviroment: No Family/Social History - Physician Review Nursing Documentation Reviewed: Yes Family/Social History: No Known Family HX Smoking Status: Never Smoked Hx Alcohol Use: No Hx Substance Use: No Hx Substance Use Treatment: No Allergies/Home Meds Allergies/Adverse Reactions: Allergies No Known Allergies Allergy (Verified 07/12/18 14:46) Review of Systems - Review of Systems Constitutional: Normal Eyes: Normal ENT: Normal Respiratory: Normal Cardiovascular: Normal Gastrointestinal: Normal Genitourinary Female: Vaginal Bleeding Musculoskeletal: Normal Skin: Normal Neurological: Normal Endocrine: Normal Hemo/Lymphatic: Normal Psychiatric: Normal Physical Exam Vital Signs Reviewed: Yes Vital Signs Temp Pulse Resp BP Pulse Ox 07/12/18 14:49 98.5 F 99 H 18 116/72 97 Temperature: Afebrile Blood Pressure: Normal Pulse: Regular Respiratory Rate: Normal Appearance: Positive for: Well-Appearing, Non-Toxic, Comfortable Pain Distress: None Mental Status: Positive for: Alert and Oriented X 3 - Systems Exam Pharnyx: No: ERYTHEMA Neck: Present: Trachea Midline. No: JVD, Bruit Respiratory/Chest: Present: Clear to Auscultation, Good Air Exchange. No: Respiratory Distress, Accessory Muscle Use, Wheezes, Decreased Breath Sounds Cardiovascular: Present: Regular Rate and Rhythm, Normal S1, S2 Abdomen: Present: Normal Bowel Sounds. No: Tenderness, Distention, Peritoneal S igns, Rebound, Guarding Back: No: CVA Tenderness Upper Extremity: Present: Normal Inspection Lower Extremity: Present: Normal Inspection Neurological: Present: GCS=15, Speech Normal Skin: Present: Warm. No: Rashes Psychiatric: Present: Alert, Oriented x 3 Medical Decision Making ED Course and Treatment: 07/12/18 Pt remained stable during the ED evaluation. On re-eval, pt remained asymptomatc Afebrile, hemodynamicaly stable non-toxic Abd: benign, (-) guarding, (-) rebound back: (-) CVA tenderness Blood work review and appears normal. Blood type : O positive US results review (+) single IUP, 14w4ds, (+) FHR@148/min, no acute abnormalities Beta quant results review and c/w US results Results review and discussed with pt. Pt strongly advised to start pre- care, F/u with OB in 1-2 days for re-ev aluation. Pt advised return to ED if any worsening or new changes. - Lab Interpretations Lab Results: PT 13.1 SECONDS (9.4-12.5) H 07/12/18 15:10 INR 1.18 07/12/18 15:10 APTT 31.0 Seconds (26.9-38.3) 07/12/18 15:10 Beta HCG, Quant 66761.00 mIU/mL (0-6.15) H 07/12/18 15:10 - RAD Interpretation Radiology Orders: 07/12/18 15:04 AGE [US] Stat Accession No. : [id number] Patient Name / ID : LAMINE CHAIREZ N / [id number] Exam Date : 07/12/2018 15:47:55 ( Approved ) Study Comment : Sex / Age : F / 23Y Creator : Roberto Perez MD Dictator : Roberto Perez MD Supervisor [employer] : Road Crossing Guard : Roberto Perez MD Approver2 : Report Date : 07/12/2018 16:41:12 My Comment : Date of service: 07/12/2018 PROCEDURE: Obstetrical ultrasound examination HISTORY: vaginal bleeding COMPARISON: Not available TECHNIQUE: Transabdominal FINDINGS: There is a single live intrauterine gestation. The fetus is in variable presentation. The heart rate is 148 beats per minute. A grossly normal quantity of amniotic fluid is visualized. An anterior placenta is identified. There is no evidence of placenta previa. The cervix is closed and measures 2.4 cm in length. This is slightly short. The right ovary could not be visualized. The left ovary measures 2.2 x 2.0 x 2.9 cm. Normal flow is demonstrated. biometry yields a gestational age of 14 weeks 4 days. The XENIA by ultrasound is 01/06/2019. Limited review of anatomy shows fluid in the stomach. The urinary bladder could not be demonstrated at this time. Full anatomic evaluation at approximately 20 weeks is therefore advised. A 4 chamber heart is demonstrated. No gross abnormality of the spine is seen. The anterior abdominal wall is intact. A three-vessel umbilical cord was not evaluated at this time. IMPRESSION: Single live intrauterine gestation of approximately 14 weeks 4 days gestational age. Heart rate 148 beats per minute. Cervix closed. Anterior placenta. No placenta previa. Variable presentation no gross anatomic abnormality. anatomy evaluated in only a limited fashion at this time. Due to inability to demonstrate the urinary bladder, a full anatomic evaluation is advised at approximately 20 weeks gestation. No other significant abnormality. Disposition/Present on Arrival - Present on Arrival Any Indicators Present on Arrival: No History of DVT/PE: No History of Uncontrolled Diabetes: No Urinary Catheter: No History of Decub. Ulcer: No History Surgical Site Infection Following: None - Disposition Have Diagnosis and Disposition been Completed?: Yes Diagnosis: Threatened miscarriage Disposition: HOME/ ROUTINE Disposition Time: 16:32 Patient Plan: Discharge Patient Problems: Current Active Problems Problem Status Onset Threatened miscarriage Acute Condition: STABLE Discharge Instructions (ExitCare): Threatened Miscarriage Print Language: WELSH Additional Instructions: Encourage fluids Take vitamins daily " Pelvic rest" avoid strenuous activity, heavy lifting, avoid sexual activity for 1 week Follow up with OB in 1-2 days for re-evaluation. return to ED if any worsening or new changes. Prescriptions: Multivit/Folic Acid/I [ Plus] 1 tab PO DAILY #30 tab [facility] - Follow up with primary Forms: [employer] (Azerbaijani)
--- NOTE | 2018-07-12 16:44 | US ---
Date of service: 07/12/2018 PROCEDURE: Obstetrical ultrasound examination HISTORY: vaginal bleeding COMPARISON: Not available TECHNIQUE: Transabdominal FINDINGS: There is a single live intrauterine gestation. The fetus is in variable presentation. The heart rate is 148 beats per minute. A grossly normal quantity of amniotic fluid is visualized. An anterior placenta is identified. There is no evidence of placenta previa. The cervix is closed and measures 2.4 cm in length. This is slightly short. The right ovary could not be visualized. The left ovary measures 2.2 x 2.0 x 2.9 cm. Normal flow is demonstrated. biometry yields a gestational age of 14 weeks 4 days. The XENIA by ultrasound is 01/06/2019. Limited review of anatomy shows fluid in the stomach. The urinary bladder could not be demonstrated at this time. Full anatomic evaluation at approximately 20 weeks is therefore advised. A 4 chamber heart is demonstrated. No gross abnormality of the spine is seen. The anterior abdominal wall is intact. A three-vessel umbilical cord was not evaluated at this time. IMPRESSION: Single live intrauterine gestation of approximately 14 weeks 4 days gestational age. Heart rate 148 beats per minute. Cervix closed. Anterior placenta. No placenta previa. Variable presentation no gross anatomic abnormality. anatomy evaluated in only a limited fashion at this time. Due to inability to demonstrate the urinary bladder, a full anatomic evaluation is advised at approximately 20 weeks gestation. No other significant abnormality.
[2018-07-12 19:14] VITALS: BP 96/57; PULSE 95; RESP 17; O2SAT 99
[2018-07-12 19:23] LABS: PH,URINE 7.5 (4.7-8.0); URINE BILIRUBIN NEGATIVE (NEGATIVE); URINE BLOOD NEGATIVE (NEGATIVE); URINE GLUCOSE (UA) NEGATIVE (NEGATIVE); URINE LEUKOCYTE ESTERASE NEGATIVE Leu/uL (NEGATIVE); URINE PROTEIN NEGATIVE mg/dL (<30 mg/dL)
[2018-07-12 19:24] LABS: URINE APPEARANCE CLEAR (CLEAR); URINE COLOR YELLOW (YELLOW)
== END 2018-07-12 19:45 | disposition home or self-care (01) ==
LOC: ED 14:39
DX: O20.0 Threatened abortion (principal); Z3A.14 14 weeks gestation of pregnancy

== ENCOUNTER 2018-08-30 17:50 | Emergency (ER) | payer MEDICAID ==
[2018-08-30 17:58] VITALS: BMI 24.1
[2018-08-30 18:00] VITALS: RESP 18; TEMP 98.4
[2018-08-30] MEDS ORDERED: Meloxicam 7.5 MG TAB PO STA (18:20)
[2018-08-30] MEDS ORDERED: Amoxicillin-Clav 500-125 mg Tab PO STA (18:20)
[2018-08-30] MEDS ORDERED: Lidocaine 5% Patch TD STA (18:20)
--- NOTE | 2018-08-30 18:24 | ED PDOC ---
Arrival/HPI <Tushar Floyd - Last Filed: 08/31/18 00:12> - General Historian: Patient - History of Present Illness Narrative History of Present Illness (Text): 08/30/18 19:19 23 yo F ~20 wks , presents complaining of pain to her b/l groin, suprapubic area and lower back for the past few days, worse with movement. Reports no N/V, fever, vaginal bleeding, vaginal d/c, trauma, injury, urinary symptoms. Patient is receiving care, has had prior US for this . OB Sidra Eugene <Latoya Little - Last Filed: 08/31/18 00:17> - General Chief Complaint: Abdominal Pain Time Seen by Provider: 08/30/18 17:51 Past Medical History - Past History Past History: No Previous - Infectious Disease Hx of Infectious Diseases: None - Tetanus Immunization Tetanus Immunization: Unknown - Past Medical History Past Medical History: No Previous - Cardiac Hx Cardiac Disorders: No - Pulmonary Hx Respiratory Disorders: No - Neurological Hx Neurological Disorder: No - HEENT Hx HEENT Disorder: No - Renal Hx Renal Disorder: No - Endocrine/Metabolic Hx Endocrine Disorders: No - Hematological/Oncological Hx Blood Disorders: No - Integumentary Hx Dermatological Disorder: Yes Other/Comment: Lump on R breast - Musculoskeletal/Rheumatological Hx Musculoskeletal Disorders: No - Gastrointestinal Hx Gastrointestinal Disorders: No - Genitourinary/Gynecological Hx Genitourinary Disorders: No - Psychiatric Hx Psychophysiologic Disorder: No Hx Anxiety: No Hx Bipolar Disorder: No Hx Depression: No Hx Post Traumatic Stress Disorder: No Hx Schizophrenia: No Hx Substance Use: No - Past Surgical History Past Surgical History: No Previous - Anesthesia Hx Anesthesia: No Hx Anesthesia Reactions: No Hx Malignant Hyperthermia: No - Suicidal Assessment Feels Threatened In Home Enviroment: No <Latoya Little - Last Filed: 08/31/18 00:17> Family/Social History Family/Social History: No Known Family HX Smoking Status: Never Smoked Hx Alcohol Use: No Hx Substance Use: No Hx Substance Use Treatment: No <Latoya Little - Last Filed: 08/31/18 00:17> Allergies/Home Meds <Tushar Floyd - Last Filed: 08/31/18 00:12> <Latoya Little - Last Filed: 08/31/18 00:17> Allergies/Adverse Reactions: Allergies No Known Allergies Allergy (Verified 08/10/18 13:32) Review of Systems - Review of Systems Constitutional: absent: Fatigue, Fevers Respiratory: absent: SOB, Cough Cardiovascular: absent: Chest Pain, Palpitations Gastrointestinal: Abdominal Pain. absent: Diarrhea, Nausea, Vomiting Genitourinary Female: absent: Dysuria, Frequency, Hematuria, Vaginal Bleeding, Vaginal Discharge Musculoskeletal: Arthralgias, Back Pain. absent: Neck Pain Skin: absent: Rash, Skin Lesions Neurological: absent: Headache, Dizziness <Latoya Little - Last Filed: 08/31/18 00:17> Physical Exam Vital Signs Temp Pulse Resp BP Pulse Ox 08/30/18 17:58 98.4 F 102 H 18 111/72 99 <Tushar Floyd - Last Filed: 08/31/18 00:12> Vital Signs Temp Pulse Resp BP Pulse Ox 08/30/18 17:58 98.4 F 102 H 18 111/72 99 Temperature: Afebrile Blood Pressure: Normal Pulse: Regular Respiratory Rate: Normal Appearance: Positive for: Well-Appearing, Non-Toxic, Comfortable Pain Distress: None Mental Status: Positive for: Alert and Oriented X 3 - Systems Exam Head: Present: Atraumatic, Normocephalic Pupils: Present: PERRL Extroacular Muscles: Present: EOMI Conjunctiva: Present: Normal Mouth: Present: Moist Mucous Membranes Neck: Present: Normal Range of Motion Respiratory/Chest: Present: Clear to Auscultation, Good Air Exchange. No: Respiratory Distress, Accessory Muscle Use Cardiovascular: Present: Regular Rate and Rhythm, Normal S1, S2. No: Murmurs Abdomen: No: Tenderness, Distention, Peritoneal Signs Back: Present: Normal Inspection. No: CVA Tenderness, Midline Tenderness, Paraspinal Tenderness Upper Extremity: Present: Normal Inspection, Normal ROM. No: Cyanosis, Edema Lower Extremity: Present: Normal Inspection, Normal ROM. No: Edema Neurological: Present: GCS=15, CN II-XII Intact, Speech Normal, Motor Func Grossly Intact, Normal Sensory Function Skin: Present: Warm, Dry, Normal Color. No: Rashes Psychiatric: Present: Alert, Oriented x 3, Normal Insight, Normal Concentration <Latoya Little - Last Filed: 08/31/18 00:17> Medical Decision Making - Lab Interpretations Lab Results: Total Bilirubin 0.4 mg/dL (0.2-1.3) 08/30/18 18:44 AST 22 U/L (14-36) 08/30/18 18:44 ALT 21 U/L (7-56) 08/30/18 18:44 Alkaline Phosphatase 50 U/L (38-126) 08/30/18 18:44 Total Protein 6.7 g/dL (5.8-8.3) 08/30/18 18:44 Albumin 3.7 g/dL (3.0-4.8) 08/30/18 18:44 Globulin 3.0 gm/dL 08/30/18 18:44 Albumin/Globulin Ratio 1.2 (1.1-1.8) 08/30/18 18:44 Urine Color Yellow (YELLOW) 08/30/18 22:28 Urine Appearance Clear (CLEAR) 08/30/18 22:28 Urine pH 6.5 (4.7-8.0) 08/30/18 22:28 Ur Specific [place] 1.010 (1.005-1.035) 08/30/18 22:28 Urine Protein Negative mg/dL (<30 mg/dL) 08/30/18 22:28 Urine Glucose (UA) Negative mg/dL (NEGATIVE) 08/30/18 22:28 Urine Ketones 40 mg/dL (NEGATIVE) H 08/30/18 22:28 Urine Blood Negative (NEGATIVE) 08/30/18 22:28 Urine Nitrate Negative (NEGATIVE) 08/30/18 22:28 Urine Bilirubin Negative (NEGATIVE) 08/30/18 22:28 Urine Urobilinogen 0.2 E.U./dL (<1 E.U./dL) 08/30/18 22:28 Ur Leukocyte Esterase Negative Bharti/uL (NEGATIVE) 08/30/18 22:28 Beta HCG, Quant 95475.00 mIU/mL (0-6.15) H 08/30/18 18:44 - RAD Interpretation Radiology Orders: 08/30/18 18:25 AGE [US] Routine - Medication Orders Current Medication Orders: Discontinued Medications Potassium Chloride (Potassium Chloride Oral Soln) 40 meq PO STAT STA Stop: 08/31/18 00:10 <Tushar Floyd - Last Filed: 08/31/18 00:12> ED Course and Treatment: 08/30/18 19:21 Labs, Urinalysis, IV and pelvic US ordered. Labs reviewed, hgb 10, K 3.2, UA (-) for infection. 08/31/18 00:08 US Obstetrical, Complete <14 weeks CLINICAL HISTORY: Pelvis pain TECHNIQUE: Transvaginal and transabdominal imaging of the maternal pelvis and a <14 week gestation with image documentation. COMPARISON: SD\SR - AGE - 0307/05[birth year]2018 06:20 PM EDT FINDINGS: GESTATION: See below. UTERUS: Unremarkable. No myometrial mass. CERVIX: Placenta is anterior clear of the cervix. OVARIES: Unremarkable. No mass. FREE FLUID: No free fluid in the cul de sac. MISCELLANEOUS: presentation is cephalic. motion is observed. heart motion is observed at 143 beats per minute. BPD measures 5.2 cm compatible with 21.6 weeks. Abdominal circumference measures 16.9 cm compatible with 21.6 weeks. Head circumference measures 19.1 centimeters compatible with 21.2 weeks. Femur length measures 3.6 cm compatible with 21.4 weeks. Mean gestational age by ultrasound is 21.5 weeks. Right ovary measures 2.6 x 2.6 x 3.2 cm. Right ovary demonstrates normal Doppler flow. Left ovary is not adequately visualized on this study. IMPRESSION: 1. Single live intrauterine gestation of approximately 21.5 weeks. 2. heart motion is observed at 143 beats per minute. 3. Measurements as described above. 4. Unremarkable sonographic appearance of the right ovary. Left ovary is not adequately visualized. Diagnostic results d/w the patient, patient medicated with KCl PO for K 3.2. Patient states that she is still having suprapubic pain especially when she walks and moves her legs, but reports no vaginal bleeding. Case d/w Dr. Rodríguez, agrees with plan to transfer as per protocol to [facility] for further observation. <Latoya Little - Last Filed: 08/31/18 00:17> - PA / RECEIVING ROOM CLERK / Resident Statement / has reviewed & agrees with the documentation as recorded. <Tushar Floyd - Last Filed: 08/31/18 00:12> - PA / RECEIVING ROOM CLERK / Resident Statement / has reviewed & agrees with the documentation as recorded. <Latoya Little - Last Filed: 08/31/18 00:17> Disposition/Present on Arrival <Tushar Floyd - Last Filed: 08/31/18 00:12> - Present on Arrival Any Indicators Present on Arrival: No History of DVT/PE: No History of Uncontrolled Diabetes: No Urinary Catheter: No History of Decub. Ulcer: No History Surgical Site Infection Following: None - Disposition Have Diagnosis and Disposition been Completed?: Yes Disposition Time: 00:10 <Latoya Little - Last Filed: 08/31/18 00:17> - Disposition Diagnosis: Abdominal pain, Second trimester Disposition: Transfer HUMU Condition: STABLE Forms: [employer] (Danish)
[2018-08-30 19:03] LABS: BASO # 0.02 K/mm3 (0.0-2.0); BASO % 0.3 % (0.0-3.0); EOS # 0.1 (0.0-0.7); EOS % 0.7 % (1.5-5.0); HEMOGLOBIN 10.6 g/dL (12.0-16.0); LYMPH # 1.9 (1.2-3.4); LYMPH % 27.4 % (22.0-35.0); MEAN CELL VOLUME 76.3 fl (80.0-105.0); MEAN CORPUSCULAR HEMOGLOBIN 25.4 pg (25.0-35.0); MEAN CORPUSCULAR HGB CONC 33.2 g/dl (31.0-37.0); MEAN PLATELET VOLUME 9.2 fl (7.0-11.0); MONO # 0.4 (0.1-0.6); MONO % 5.4 % (1.0-6.0); RBC 4.18 10^6/uL (3.5-6.1); RED CELL DISTRIBUTION WIDTH 14.6 % (11.5-14.5); WHITE BLOOD COUNT 6.9 10^3/uL (4.5-11.0)
[2018-08-30 19:12] LABS: ALT/SGPT 21 U/L (7-56); AST/SGOT 22 U/L (14-36); BLOOD UREA NITROGEN 7 mg/dL (7-21)
[2018-08-30 19:25] LABS: ALB/GLOB RATIO 1.2 (1.1-1.8); ALBUMIN 3.7 g/dL (3.0-4.8); CALCIUM 9.2 mg/dL (8.4-10.5); GFR NON-AFRICAN AMERICAN > 60
[2018-08-30 22:33] LABS: PH,URINE 6.5 (4.7-8.0); URINE BILIRUBIN NEGATIVE (NEGATIVE); URINE BLOOD NEGATIVE (NEGATIVE); URINE GLUCOSE (UA) NEGATIVE (NEGATIVE); URINE LEUKOCYTE ESTERASE NEGATIVE Leu/uL (NEGATIVE); URINE PROTEIN NEGATIVE mg/dL (<30 mg/dL); URINE UROBILINOGEN 0.2 E.U./dL (<1 E.U./dL)
[2018-08-30 22:36] LABS: URINE APPEARANCE CLEAR (CLEAR); URINE COLOR YELLOW (YELLOW)
[2018-08-31] MEDS ORDERED: Potassium Chloride 40 mEq/30 ml LIQ UD PO STA (00:09)
[2018-08-31 00:42] VITALS: BP 112/64; PULSE 83; O2SAT 100
--- NOTE | 2018-08-31 15:02 | US ---
Date of service: 08/30/2018 PROCEDURE: Obstetrical ultrasound. HISTORY: Abdominal pain, 20 wks preg LMP 04/06/2018. COMPARISON: 07/05/2018, 07/12/2018. TECHNIQUE: Standard protocol for this study/examination. FINDINGS: Cephalic presentation. Anterior placenta. No evidence of abruption or previa Gestational age derived from LMP 20 weeks 6 days. LMP XENIA 01/11/2019. Gestational age derived from the following biometric parameters 21 weeks 5 days. Biometric XENIA 01/05/2019 Biparietal diameter 5.22 cm Head circumference 19.06 cm Abdominal circumference 16.88 cm Femur length 3.63 cm Estimated weight 442.5 g Calculated cardiac rate 144 beats per min. Closed cervix measuring 5.6 cm IMPRESSION: 21 weeks 5 days live intrauterine gestation. Gestational concordance documented. Adequate interval progression compared to the prior study. Concordant findings (preliminary report) provided by [facility].
== END 2018-08-31 00:40 | disposition short-term general hospital (02) ==
LOC: ED 17:50
DX: O26.892 Other specified pregnancy related conditions, second trimester (principal); R10.2 Pelvic and perineal pain; Z3A.20 20 weeks gestation of pregnancy
CPT/HCPCS: 76815; 80053; 81003; 81025; 84702; 85025; 86850; 86900; 87086; 99284; J3480